=== PATIENT | female | born 1960 | race Caucasian/White ===

== ENCOUNTER 2017-06-09 07:09 | Inpatient (IN) | payer OTHER ==
[2017-06-04 11:46] LABS: CLARITY,URINE Clear (Clear); COLOR,URINE Yellow (Yellow); GLUCOSE, URINE Negative (Neg); KETONES,URINE Negative (Neg); LEUKOCYTE ESTERASE ,URINE Trace (Neg); NITRITES, URINE Negative (Neg); OCCULT BLOOD,URINE Negative (Neg); PH,URINE 6.5 (4.8-8.0); PROTEIN,URINE Negative (Neg); UROBILINOGEN,URINE 0.2 E.U/dL (0.2-1.0)
[2017-06-04 12:00] LABS: UA COLLECTION TYPE VOIDED
[2017-06-04 12:02] LABS: BACTERIA,URINE NONE SEEN /HPF (Neg); MUCUS STRANDS NONE SEEN /LPF (Neg); RBC,URINE NONE SEEN /HPF (0-2); SQUAMOUS EPITHELIAL CELL,UR FEW /LPF (FEW); WBC,URINE 0-4 /HPF (0-4)
[2017-06-04 12:47] LABS: BASOPHILS % (AUTO) 0.2 % (0-1); EOSINOPHILS # (AUTO) 0.2 X10'3 (0-0.9); EOSINOPHILS % (AUTO) 1.7 % (0-6); LYMPHOCYTES % (AUTO) 18.3 % (21-51); MEAN CORPUSCULAR HEMOGLOBIN 33.8 PG (27.0-31.0); MEAN CORPUSCULAR HGB CONC 34.2 % (33.0-36.5); MEAN CORPUSCULAR VOLUME 98.7 FL (78-98); MEAN PLATELET VOLUME 8.3 FL (7.4-10.4); MONOCYTES # (AUTO) 0.7 X10'3 (0-0.9); MONOCYTES % (AUTO) 6.6 % (2-12); NEUTROPHILS % (AUTO) 73.2 % (42-75); PRE OP HEMATOCRIT 45.6 % (35.0-45.0); PRE OP HEMOGLOBIN 15.6 g/dL (12.0-16.0); PRE OP PLATELET COUNT 271 X10'3 (140-440); RED BLOOD COUNT 4.62 X10'6 (4.20-5.60); RED CELL DISTRIBUTION WIDTH 14.3 % (11.5-14.5)
[2017-06-04 12:59] LABS: PRE OP INR 0.9 INR; PRE OP PROTIME 9.6 SECONDS (9.0-12.0)
[2017-06-04 13:03] LABS: ALBUMIN 3.7 G/DL (3.4-5.0); ALKALINE PHOSPHATASE 87 IU/L (46-116); BLOOD UREA NITROGEN 11 MG/DL (7-18); BUN/CREATININE RATIO 13.8 (6.6-38.0); CALCIUM 9.1 MG/DL (8.5-10.1); CHLORIDE 103 MMOL/L (99-107); PRE OP ALT 22 U/L (30-65); PRE OP ANION GAP 7 (8-16); PRE OP AST 17 U/L (10-37); PRE OP BILIRUB, TOTAL 0.5 MG/DL (0.0-1.0); PRE OP GLUCOSE 89 MG/DL (70-104); PRE OP POTASSIUM 4.4 MMOL/L (3.4-5.1); PRE OP SODIUM 139 MMOL/L (135-145); TOTAL CARBON DIOXIDE 28.9 MMOL/L (24-32); TOTAL PROTEIN 7.5 G/DL (6.4-8.2); eGFR 75 ML/MIN
[2017-06-09] VITALS (21 sets, daily range): BP systolic 133–168; BP diastolic 51–97
[~2017-06-09] VITALS: Ht 160 cm; Wt 98.2 kg
[~2017-06-09 07:09] MED LIST: BUPR-94 PO; CHOL10002 PO; FISH12002 PO; GLUC-133 PO; LEVO88TA2 PO; MINO100T PO; [UNRECOGNIZED DRUG - OTHER] PO; cefazolin/dext.iso 2gm/50ml 50 ML IV ONE; famotidine 20mg tablet PO ONE
[2017-06-09] MEDS: ringers solution, lacted 1,000 ML IV SCH ×2 (07:57→15:41)
[2017-06-09] MEDS ORDERED: albuterol 2.5 MG/3 ML nebule NEB ONE (08:50)
[2017-06-09] MEDS ORDERED: BUPIVAcaine/PF 2.5 mg/ml (0.25%) 30ml vial ONE (11:16)
[2017-06-09] MEDS ORDERED: sevoflurane 250ml liquid IH ONE (11:36)
[2017-06-09] MEDS ORDERED: propofol inj 20 ML IV ONE (11:39)
[2017-06-09] MEDS ORDERED: fentaNYL/PF 50MCG/1 ML 2ML syringe ONE (11:39)
[2017-06-09] MEDS ORDERED: rocuronium 10mg/ml inj IV ONE (11:39)
[2017-06-09] MEDS ORDERED: midazolam 2 mg/2 ml injection ONE (11:39)
[2017-06-09] MEDS ORDERED: ringers solution, lacted 1,000 ML IV SCH (12:03)
[2017-06-09] MEDS ORDERED: morphine 2 MG/ML inj. syringe IV PRN ×2 (12:05)
[2017-06-09] MEDS ORDERED: proCHLORperazine 10 MG/2 ml inj IV PRN (12:05)
[2017-06-09] MEDS ORDERED: meperidine/PF 50mg/ml syringe IV PRN ×2 (12:05)
[2017-06-09] MEDS ORDERED: ondansetron/PF 4mg/2ml inj IV PRN ×2 (12:05→13:40)
[2017-06-09] MEDS ORDERED: glycopyrrolate 0.2mg/ml inj ONE (12:47)
[2017-06-09] MEDS ORDERED: neostigmine methylsulfate 1 MG/ML 10ml vial ONE (12:47)
[2017-06-09] MEDS: meperidine/PF 50mg/ml syringe IV PRN ×2 (13:04→13:36)
[2017-06-09] MEDS ORDERED: naloxone 0.4 mg/ml inj IV PRN (13:40)
[2017-06-09] MEDS ORDERED: CADD PCA waste documentation MC PRN (13:40)
[2017-06-09] MEDS ORDERED: HYDROcodone/acetaminophen 10/325mg tab PO PRN (13:40)
[2017-06-09] MEDS ORDERED: metoclopramide 5 mg/ml inj IV PRN (13:40)
[2017-06-09] MEDS: HYDROmorphone/NS 1 mg/ml CADD 50 ML IV SCH ×6 (14:10→23:00)
[2017-06-09] MEDS: piperacillin/tazo 3.375gm/50ml 50 ML IV SCH ×2 (15:59→22:19)
[2017-06-09] MEDS: potassium CL 20mEq in D5-1/2NS 1,000 ML IV SCH (15:59)
[2017-06-09] MEDS: buPROPion SR 150mg tablet PO SCH (19:58)
[2017-06-09] MEDS: docusate sod 100mg capsule PO SCH (19:59)
[2017-06-09] MEDS: albuterol 2.5 MG/3 ML nebule NEB SCH (20:53)
[2017-06-10] VITALS: BP 134/75
[2017-06-10] MEDS: HYDROmorphone/NS 1 mg/ml CADD 50 ML IV SCH ×12 (01:00→23:00)
[2017-06-10] MEDS: potassium CL 20mEq in D5-1/2NS 1,000 ML IV SCH ×4 (01:31→23:29)
[2017-06-10] MEDS: piperacillin/tazo 3.375gm/50ml 50 ML IV SCH ×4 (03:22→19:35)
[2017-06-10 04:00] VITALS: BP 132/81
[2017-06-10 05:15] LABS: BASOPHILS % (AUTO) 0.2 % (0-1); EOSINOPHILS % (AUTO) 0 % (0-6); HEMOGLOBIN 14.2 g/dl (12.0-16.0); LYMPHOCYTES % (AUTO) 6.7 % (21-51); MEAN CORPUSCULAR HEMOGLOBIN 34.5 PG (27.0-31.0); MEAN CORPUSCULAR HGB CONC 35.5 % (33.0-36.5); MEAN CORPUSCULAR VOLUME 97.3 FL (78-98); MEAN PLATELET VOLUME 7.7 FL (7.4-10.4); MONOCYTES # (AUTO) 0.5 X10'3 (0-0.9); NEUTROPHILS # (AUTO) 13.6 X10'3 (1.8-7.7); NEUTROPHILS % (AUTO) 90.1 % (42-75); PLATELET COUNT 280 X10'3 (140-440); RED BLOOD COUNT 4.11 X10'6 (4.20-5.60); RED CELL DISTRIBUTION WIDTH 13.7 % (11.5-14.5); WHITE BLOOD COUNT 15.1 X10'3 (4.5-11.0)
[2017-06-10 07:00] VITALS: BP 145/99
[2017-06-10] MEDS: docusate sod 100mg capsule PO SCH ×2 (08:00→19:43)
[2017-06-10] MEDS: buPROPion SR 150mg tablet PO SCH ×2 (08:00→18:00)
[2017-06-10] MEDS ORDERED: buproprion 150mg XL (24-hour) tablet PO SCH (08:00)
[2017-06-10] MEDS: levoTHYROXINE 25mcg tablet PO SCH (08:00)
[2017-06-10] MEDS: albuterol 2.5 MG/3 ML nebule NEB SCH ×4 (08:10→19:30)
[2017-06-10 11:00] VITALS: BP 140/79
[2017-06-10] MEDS: lactobacillus rhamnosus 10,000 MMU CELLS/CAPSULE PO SCH (17:30)
[2017-06-10 20:00] VITALS: BP 133/84
[2017-06-11] VITALS: BP 125/81
[2017-06-11] MEDS: HYDROmorphone/NS 1 mg/ml CADD 50 ML IV SCH ×12 (01:00→22:48)
[2017-06-11] MEDS: piperacillin/tazo 3.375gm/50ml 50 ML IV SCH ×4 (01:08→19:45)
[2017-06-11] MEDS: potassium CL 20mEq in D5-1/2NS 1,000 ML IV SCH ×3 (05:39→19:45)
[2017-06-11] MEDS: albuterol 2.5 MG/3 ML nebule NEB SCH ×4 (07:12→19:40)
[2017-06-11] MEDS: levoTHYROXINE 25mcg tablet PO SCH (07:25)
[2017-06-11] MEDS: lactobacillus rhamnosus 10,000 MMU CELLS/CAPSULE PO SCH ×2 (07:25→17:25)
[2017-06-11] MEDS: buPROPion SR 150mg tablet PO SCH ×2 (07:25→17:26)
[2017-06-11] MEDS: docusate sod 100mg capsule PO SCH ×2 (07:41→19:45)
[2017-06-11 19:00] VITALS: BP 138/68
[2017-06-12] VITALS: BP 113/64
[2017-06-12] MEDS: HYDROmorphone/NS 1 mg/ml CADD 50 ML IV SCH ×6 (01:00→11:00)
[2017-06-12] MEDS: piperacillin/tazo 3.375gm/50ml 50 ML IV SCH ×2 (01:51→07:57)
[2017-06-12] MEDS: potassium CL 20mEq in D5-1/2NS 1,000 ML IV SCH ×2 (04:34→13:39)
[2017-06-12 07:42] VITALS: BP 127/72
[2017-06-12] MEDS: albuterol 2.5 MG/3 ML nebule NEB SCH ×2 (07:46→11:28)
[2017-06-12] MEDS: levoTHYROXINE 25mcg tablet PO SCH (07:56)
[2017-06-12] MEDS: buPROPion SR 150mg tablet PO SCH (07:56)
[2017-06-12] MEDS: lactobacillus rhamnosus 10,000 MMU CELLS/CAPSULE PO SCH (07:56)
[2017-06-12] MEDS: docusate sod 100mg capsule PO SCH (07:57)
[2017-06-12] MEDS ORDERED: methylnaltrexone br 12mg/0.6ml inj***SubQ only SQ SCH (08:00)
[2017-06-12] MEDS ORDERED: nicotine 21mg patch - 24 hr TD SCH (09:55)
[2017-06-12 10:46] LABS: BASOPHILS % (AUTO) 0.2 % (0-1); EOSINOPHILS # (AUTO) 0.1 X10'3 (0-0.9); EOSINOPHILS % (AUTO) 1.4 % (0-6); HEMATOCRIT 40.3 % (35.0-45.0); HEMOGLOBIN 14.1 g/dl (12.0-16.0); LYMPHOCYTES # (AUTO) 1.2 X10'3 (1.1-4.8); LYMPHOCYTES % (AUTO) 11.7 % (21-51); MEAN CORPUSCULAR HEMOGLOBIN 34.2 PG (27.0-31.0); MEAN CORPUSCULAR HGB CONC 34.8 % (33.0-36.5); MEAN CORPUSCULAR VOLUME 98.3 FL (78-98); MEAN PLATELET VOLUME 7.6 FL (7.4-10.4); MONOCYTES # (AUTO) 0.8 X10'3 (0-0.9); MONOCYTES % (AUTO) 7.2 % (2-12); NEUTROPHILS # (AUTO) 8.3 X10'3 (1.8-7.7); NEUTROPHILS % (AUTO) 79.5 % (42-75); PLATELET COUNT 305 X10'3 (140-440); RED CELL DISTRIBUTION WIDTH 13.5 % (11.5-14.5); WHITE BLOOD COUNT 10.5 X10'3 (4.5-11.0)
[2017-06-12 10:55] LABS: ALBUMIN 2.9 G/DL (3.4-5.0); ANION GAP 7 (8-16); BLOOD UREA NITROGEN 7 MG/DL (7-18); BUN/CREATININE RATIO 9.6 (6.6-38.0); CALCIUM 8.9 MG/DL (8.5-10.1); CHLORIDE 100 MMOL/L (99-107); CREATININE 0.73 MG/DL (0.40-0.90); GLUCOSE 106 MG/DL (70-104); POTASSIUM 4.4 MMOL/L (3.5-5.1); SODIUM 137 MMOL/L (135-145); TOTAL CARBON DIOXIDE 29.8 MMOL/L (24-32); eGFR 83 ML/MIN
[2017-06-12 12:00] VITALS: BP 118/82
[2017-06-12] MEDS ORDERED: AMOX-422 PO (14:18)
== END 2017-06-12 15:12 | disposition home or self-care (01) | DRG 330 ==
LOC: PRE-OP 07:09 → SUR 3N 13:39
PROVIDERS: ADMIT Surgery; ATTEND Surgery
PROC: 0DBH4ZZ Excision of Cecum, Percutaneous Endoscopic Approach (ICD-10-PCS; 2017-06-09)
PROC: 0DTJ4ZZ Resection of Appendix, Percutaneous Endoscopic Approach (ICD-10-PCS; principal; 2017-06-09 11:36)
DX: K35.2 Acute appendicitis with generalized peritonitis (principal); K56.7 Ileus, unspecified; E66.9 Obesity, unspecified; Z79.899 Other long term (current) drug therapy; Z68.38 Body mass index [BMI] 38.0-38.9, adult; Z88.2 Allergy status to sulfonamides; Z88.5 Allergy status to narcotic agent
CPT/HCPCS: 36415; 80048; 80053; 81001; 85025; 85610; 85730; 87088; 93005; 94640; 94760; A6212; A6255; A6449; A7000; J0690; J1170; J2175; J2250; J2405; J2543; J2704; J2710; J3010; J3490; J7120

== ENCOUNTER 2018-07-13 11:13 | Emergency (ER) | payer BC, OTHER ==
[~2018-07-13] VITALS: Ht 160 cm; Wt 87.3 kg
[~2018-07-13 11:13] MED LIST changes: -cefazolin/dext.iso 2gm/50ml 50 ML IV ONE; -famotidine 20mg tablet PO ONE
[2018-07-13 11:38] VITALS: BP 121/80
[2018-07-13 12:03] LABS: BASOPHILS % (AUTO) 0.4 % (0-1); EOSINOPHILS % (AUTO) 0.4 % (0-6); HEMATOCRIT 43.4 % (35.0-45.0); LYMPHOCYTES # (AUTO) 1.3 X10'3 (1.1-4.8); LYMPHOCYTES % (AUTO) 12.8 % (21-51); MEAN CORPUSCULAR HGB CONC 34.5 g/dL (33.0-36.5); MEAN CORPUSCULAR VOLUME 101.4 FL (78-98); MEAN PLATELET VOLUME 7.3 FL (7.4-10.4); MONOCYTES # (AUTO) 0.4 X10'3 (0-0.9); MONOCYTES % (AUTO) 3.8 % (2-12); NEUTROPHILS # (AUTO) 8.5 X10'3 (1.8-7.7); NEUTROPHILS % (AUTO) 82.6 % (42-75); PLATELET COUNT 307 X10'3 (140-440); RED BLOOD COUNT 4.28 X10'6 (4.20-5.60); RED CELL DISTRIBUTION WIDTH 13.9 % (11.5-14.5); WHITE BLOOD COUNT 10.2 X10'3 (4.5-11.0)
[2018-07-13 12:06] LABS: CLARITY,URINE SLIGHTLY CLOUDY (Clear); COLOR,URINE YELLOW (Yellow); GLUCOSE, URINE NEGATIVE (Neg); KETONES,URINE NEGATIVE (Neg); LEUKOCYTE ESTERASE ,URINE NEGATIVE (Neg); NITRITES, URINE NEGATIVE (Neg); OCCULT BLOOD,URINE NEGATIVE (Neg); PH,URINE 5.5 (4.8-8.0); PROTEIN,URINE NEGATIVE (Neg); URINE HCG NEGATIVE (NEG); UROBILINOGEN,URINE 0.2 E.U/dL (0.2-1.0)
[2018-07-13 12:07] LABS: UA COLLECTION TYPE CLN CATCH MIDSTREAM
[2018-07-13 12:14] LABS: PROTHROMBIN TIME 9.7 SECONDS (9.0-12.0)
[2018-07-13 12:15] LABS: MUCUS STRANDS MODERATE /LPF (Neg); TRANSITIONAL EPI CELLS,URINE FEW /HPF
[2018-07-13 12:16] LABS: ALANINE AMINOTRANSFERASE 69 U/L (12-78); ALBUMIN 3.6 G/DL (3.4-5.0); ALBUMIN/GLOBULIN RATIO 1.1 (1.1-1.5); ALKALINE PHOSPHATASE 73 IU/L (46-116); ANION GAP 5 (8-16); ASPARTATE AMINO TRANSFERASE 44 U/L (10-37); BILIRUBIN,TOTAL 0.3 MG/DL (0.1-1.0); BLOOD UREA NITROGEN 10 MG/DL (7-18); BUN/CREATININE RATIO 11.4 (6.6-38.0); CHLORIDE 104 MMOL/L (99-107); CREATININE 0.88 MG/DL (0.40-0.90); GLUCOSE 136 MG/DL (70-104); POTASSIUM 3.9 MMOL/L (3.5-5.1); SODIUM 138 MMOL/L (135-145); TOTAL PROTEIN 6.9 G/DL (6.4-8.2); eGFR 67 ML/MIN
[2018-07-13 12:17] LABS: SQUAMOUS EPITHELIAL CELL,UR MANY /LPF (FEW)
[2018-07-13 12:18] LABS: BACTERIA,URINE 1+ /HPF (Neg); CAL OXALATE CRYSTALS 3+ /HPF (NEGATIVE); RBC,URINE 0-2 /HPF (0-2)
== END 2018-07-13 13:06 | disposition home or self-care (01) ==
LOC: ER 11:13
DX: R10.31 Right lower quadrant pain (principal); G89.29 Other chronic pain; F17.200 Nicotine dependence, unspecified, uncomplicated; Z90.49 Acquired absence of other specified parts of digestive tract; Z88.2 Allergy status to sulfonamides; Z88.5 Allergy status to narcotic agent; Z79.899 Other long term (current) drug therapy
CPT/HCPCS: 36415; 80053; 81001; 81025; 85025; 85610; 99283